=== PATIENT | male | born 1990 | race African-American/Black ===

== ENCOUNTER 2016-09-09 15:54 | Emergency (ER) | payer OTHER ==
[~2016-09-09] VITALS: Ht 182.9 cm; Wt 90.7 kg
[~2016-09-09 15:54] MED LIST: CLEOCIN HCL150 MG PO; FLEXERIL PO; IBUPROFEN 600600 M1 PO; NOHOMEMEDICATIONS; NORCO 5-325 TA1 EACH PO; ZANTAC 150MG T150 M1 PO; ZOFRAN ODT4 MG PO
[2016-09-09 16:22] LABS: HEMATOCRIT 44.5 % (42.0-52.0); HEMOGLOBIN 15.3 gm/dL (14.0-18.0); MCH 32.6 pg (26.0-34.0); MCHC 34.4 % (28.0-37.0); MCV 94.7 fL (80.0-100.0); PLATELET COUNT 251 thou/uL (150-400); RDW 11.7 % (10.5-14.5); WBC 11.6 thou/uL (4.0-11.0)
[2016-09-09 16:24] LABS: MANUAL DIFF YES
[2016-09-09 16:38] LABS: ALBUMIN 4.4 g/dL (3.4-5.0); CALCIUM 9.6 mg/dL (8.5-10.1); CREATININE 1.1 mg/dL (0.6-1.3); POTASSIUM 4.6 mmol/L (3.5-5.1); TOTAL PROTEIN 8.1 g/dL (6.4-8.2)
[2016-09-09 17:00] LABS: ABSOLUTE NEUTROPHILS 9.6 thou/uL (1.4-8.2); TOTAL CELL COUNT 100
[2016-09-09 17:01] LABS: POIKILOCYTOSIS SLIGHT
[2016-09-09 17:52] LABS: URINE BILIRUBIN NEGATIVE (Negative); URINE BLOOD NEGATIVE (Negative); URINE COLOR YELLOW; URINE GLUCOSE-RANDOM* NEGATIVE (Negative); URINE KETONES NEGATIVE (Negative); URINE LEUKOCYTES-REFLEX TRACE (Negative); URINE PROTEIN (DIPSTICK) NEGATIVE (Negative); URINE SPECIFIC GRAVITY <= 1.005 (1.003-1.035); URINE UROBILINOGEN 0.2 E.U./dl (0.2-1.0)
[2016-09-09] MEDS ORDERED: PHENERGAN 25 MG25 M1 PO (18:31)
[2016-09-09] MEDS ORDERED: HYDROCODONE-AP1 EAC6 PO (18:31)
[2016-09-09 18:46] VITALS: BP 112/49
== END 2016-09-09 18:47 | disposition home or self-care (01) ==
LOC: ER 15:54
PROVIDERS: Physician Assistant
DX: R11.2 Nausea with vomiting, unspecified (principal); R10.32 Left lower quadrant pain; K21.9 Gastro-esophageal reflux disease without esophagitis; Z88.2 Allergy status to sulfonamides; Z88.0 Allergy status to penicillin; Z91.013 Allergy to seafood